=== PATIENT | male | born 1960 | race Caucasian/White ===

== ENCOUNTER 2024-05-01 23:21 | Emergency (ER) | payer MEDICARE, SELFPAY ==
[2024-05-01 23:31] VITALS: BP 136/88
[2024-05-02 01:06] VITALS: BP 151/116
--- NOTE | 2024-05-02 01:22 | ED.GENMED ---
Addendum entered and electronically signed by Abilio Rich PA-C 05/02/24 12:01:
CXR finding by radiology noted moderate tortuosity and possible aneurysmal dilatation of the ascending and descending thoracic aorta. I contacted the patient and spouse via cell phone and left voicemails for both of them to contact the ER to
discuss these results.
Original Note:
History of Present Illness
<ADRIAN Blunt - Last Filed: 05/02/24 04:13>
General
Chief Complaint: Chest Pain
Source: patient
Exam Limitations: none
Time Seen by Provider: 05/02/24 01:03
Nursing documentation reviewed up to this point in time: agreed with
History of Present Illness
History of Present Illness:
Patient w/ PMH of HTN presents to the ED w/ chest pain x 1 day. Pain started last night while sleeping, was awoken by pain. Reports pressure in L upper chest. States he felt fine during the day but pain returned when he laid down tonight. He admits
to intermittent palpitations x 1 day. Reports presyncope since getting to ED. Denies previous episodes of similar symptoms. Hx of LE edema which was dx as arthritis. Notes runny nose x 3 days but believes due to weather. Denies SOB, cough,
congestion, N/V/D/C, and GONZALEZ. Denies family hx of heart disease. Denies any recent new activities/exercises.
Past History
<ADRIAN Blunt - Last Filed: 05/02/24 04:13>
Past History
ED Past Medical History: HTN and Other
ED Past Surgical History: Appendectomy and Cholecystectomy
PSI?: No
Social History
Tobacco: Non-smoker
Alcohol: None
Personal:
Living: with family
Employment: Employed
Family History
Family History: CAD, Cancer and Other; Negative Hypertension
Review of Systems
<ADRIAN Blunt - Last Filed: 05/02/24 04:13>
Review of Systems
Constitutional: Denies fever, fatigue or chills
EENT: Reports runny nose
Respiratory: Denies cough or trouble breathing
Cardiac: Reports chest pain and palpitations; Denies syncope
ABD/GI: Denies abdominal pain, nausea, vomiting, diarrhea or constipated
: Denies dysuria
Musculoskeletal: Denies muscle pain
Phy Exam
<Ekta Gunn [facility] - Last Filed: 05/02/24 04:13>
General Physical Exam
General Presentation: mild distress
General age: appears stated age
General Habitus: normal
General Mental: alert
ENT Exam
ENT Exam: normocephalic
Eye Exam
Eye Exam: PERRL
Cardiovascular Exam
Cardiovascular Exam: regular rate/rhythm and no murmur
Pulmonary Exam
Pulmonary Exam: lungs clear, no respiratory distress, no rales, no crackles, no rhonchi, no wheezing and other (tenderness of L midclavicular 4/5th ICS )
Gastrointestinal Exam
Gastrointestinal Exam: normal bowel sounds, non tender, soft, no organomegaly and non distended
Neurological Exam
Neurological Exam: alert, oriented x3, no motor deficits and speech normal
Musculoskeletal Exam
Musculoskeletal Exam: edema (1+ pitting edema of BL LE)
Scores
<Ekta Gunn [facility] - Last Filed: 05/02/24 04:13>
Heart Score for Chest Pain Patients
Heart Score for Chest Pain Patients: 2
Heart Score Risk: 2.5% MACE over next 6 weeks
<Omayra Saxena DO - Last Filed: 05/02/24 03:25>
Heart Score for Chest Pain Patients
STEMI patient?: No
History: Slightly or Non-Suspicious
ECG: Normal
Age: >45 - <65 years
Risk Factors: 1 or 2 Risk Factors
Troponin: </= Normal Limit
Heart Score for Chest Pain Patients: 2
Heart Score Risk: 2.5% MACE over next 6 weeks
Course
<Ekta Gunn [facility] - Last Filed: 05/02/24 04:13>
Orders/Labs/Results
Orders:
Orders
05/01/24 23:22
Electrocardiogram (*1) Urgent
Reason for Study: Chest Pain
Electrocardiogram (*1) Urgent
Reason for Study: Chest Pain
EKG- Treatment ONCE
Complete Blood Count/With Diff Urgent
Comprehensive Metabolic Panel Urgent
Troponin I Urgent
05/02/24 01:46
CR Chest - 2 Views Urgent
Comment:
Reason For Exam: acute left upper chest pain
Abnormal Lab Results
05/02/24
01:19
RBC 4.14 L 10^6/uL
(4.70-6.10)
Hct 36.7 L %
(39.0-52.0)
MCH 31.6 H pg
(27.0-31.0)
Chloride 110 H mmol/L
(98-107)
BUN 25 H mg/dl
(9-20)
05/02/24 01:19
05/02/24 01:19
Vital Signs
Initial and Last Documented VS:
Initial Vital Signs
Temp Pulse Resp BP Pulse Ox
98.2 F 76 20 136/88 94
05/01/24 23:31 05/01/24 23:31 05/01/24 23:31 05/01/24 23:31 05/01/24 23:31
Last Documented Vital Signs
Temp Pulse Resp BP Pulse Ox
98.2 F 65 16 134/84 91
05/01/24 23:31 05/02/24 03:15 05/02/24 03:15 05/02/24 03:00 05/02/24 03:15
<Omayra Saxena DO - Last Filed: 05/02/24 03:25>
Orders/Labs/Results
Orders:
Orders
05/01/24 23:22
Electrocardiogram (*1) Urgent
Reason for Study: Chest Pain
Electrocardiogram (*1) Urgent
Reason for Study: Chest Pain
EKG- Treatment ONCE
Complete Blood Count/With Diff Urgent
Comprehensive Metabolic Panel Urgent
Troponin I Urgent
05/02/24 01:46
CR Chest - 2 Views Urgent
Comment:
Reason For Exam: acute left upper chest pain
Abnormal Lab Results
05/02/24
01:19
RBC 4.14 L 10^6/uL
(4.70-6.10)
Hct 36.7 L %
(39.0-52.0)
MCH 31.6 H pg
(27.0-31.0)
Chloride 110 H mmol/L
(98-107)
BUN 25 H mg/dl
(9-20)
05/02/24 01:19
05/02/24 01:19
Vital Signs
Initial and Last Documented VS:
Initial Vital Signs
Temp Pulse Resp BP Pulse Ox
98.2 F 76 20 136/88 94
05/01/24 23:31 05/01/24 23:31 05/01/24 23:31 05/01/24 23:31 05/01/24 23:31
Last Documented Vital Signs
Temp Pulse Resp BP Pulse Ox
98.2 F 65 16 134/84 91
05/01/24 23:31 05/02/24 03:15 05/02/24 03:15 05/02/24 03:00 05/02/24 03:15
<ADRIAN Blunt - Last Filed: 05/02/24 04:13>
*Critical Care Note
Total Time (30-74mins, 75-104mins- exclusive of procedures): Not Applicable
<Omayra Saxena DO - Last Filed: 05/02/24 03:25>
*Radiology
Radiology exam reviewed: preliminary read by ED provider (Chest x-ray is unremarkable)
*Pulse Oximetry
Patient hypoxic: no
*EKG
Interpreted by ED Provider?: Yes
Interpretation: normal
Comparison EKG: no comparison EKG present
Rate: normal
Rhythm: sinus
[place]: normal axis
Interval: normal interval
QRS Pattern: normal QRS
Ischemia: no ischemia
*Airframe Technician Interpretation
Rate: normal
Interpretation: normal
Rhythm: sinus
ED Attending Note
<ADRIAN Blunt - Last Filed: 05/02/24 04:13>
-
Portions of this chart may have been created with voice recognition software.� Occasional wrong word or��sound alike� substitutions may have occurred due to the inherent limitations of voice recognition software.
<Omayra Saxena DO - Last Filed: 05/02/24 03:25>
ED Attending Note
Patient seen and examined by attending physician: Yes
I performed the substantive portion of visit, reviewed & personally made and approve the management plan that is documented in note by myself or JANIE.: Yes
ED Attending Note:
This is a 64-year-old gentleman with history of hypertension who presents with left upper chest pain that he initially noted 24 hours ago after lying down to bed. Mild brief chest pain sporadically throughout the day but overall feeling well
throughout the day, exercising without difficulty without chest pain but again tonight after lying down to bed he noted some left upper chest pain that has been persistent described as a pressure, nonradiating. No other accompanying symptoms.
He does exercise on a regular basis and has been attempting to increase his weight lifting this week.
No history of diabetes nor hyperlipidemia nor thromboembolism. No family history of CAD nor ASCVD.
No recent travel. He denies leg pain or swelling.
GENERAL: 64-year-old gentleman appears his stated age, bright and alert, pleasant, appears in no acute distress.
EYE: anicteric
NECK: Supple, nontender, no meningismus, no significant adenopathy.
ENT: oral mucosa is moist. No rhinorrhea.
CARDIAC: Regular rate and rhythm. no murmur. Mild tenderness left upper chest wall. Palpation seems to exactly reproduce patient's pain complaint.
LUNGS: Clear breath sounds bilaterally, no acute respiratory distress, no wheezes/rales/rhonchi
ABDOMEN: Soft, nondistended, without focal tenderness, normoactive BS.
NEUROLOGICAL: Alert and oriented x3, no focal neuro deficits. Gait is powell and steady.
SKIN: Warm and dry, normal color, skin intact. No rash.
MUSCULOSKELETAL: No C/C/E. peripheral pulses are full and equal b/l. No palpable tenderness.
PSYCH: Normal and appropriate interaction.
Concern for ACS, musculoskeletal chest pain, pleurisy, pneumonia. No risk factors no history of thromboembolism, PE, dissection are unlikely.
EKG is unremarkable/within normal limits.
Labs are pending. Will check chest x-ray.
05/02/2024 0317 AM
Labs are unremarkable including negative troponin.
Chest x-ray is unremarkable, clear lung mehta. Normal mediastinum. Normal heart size.
Patient resting comfortably. He does continue with reproducible left upper chest pain that appears musculoskeletal in nature/chest wall strain.
Recommend supportive measures, local heat, ibuprofen versus Tylenol.
Prompt follow-up with PCP.
Return precautions discussed.
Discharge Plan
Departure
Patient Disposition: Home (Routine Discharge)
Date of Disposition: 05/02/24
Time of Disposition: 03:23
Patient with high blood pressure during this ER visit?: No
Condition: Good
Discharge Problem:
Chest wall muscle strain
Instructions: Costochondritis, Chest Pain PCP Follow Up
Prescriptions:
No Action
amlodipine 5 MG tablet
10 mg PO DAILY
lisinopril 10 MG tablet
10 mg PO DAILY
meloxicam 15 mg Tablet
15 mg PO DAILY
gabapentin 300 mg Capsule
300 mg PO TID
Referrals:
Ankit Chan MD [Family Provider] -
Interventions
Interventions:
*Risk Screen - Suicide Last Done: 05/01/24 23:31
*General Assessment Last Done: 05/02/24 01:08
*Neglect/Abuse Screening Last Done: 05/01/24 23:31
ED- Fall Risk Assessment Last Done: 05/02/24 03:28
*ED COVID-19 Vaccine History Last Done: 05/02/24 01:08
*Nursing Disposition Last Done: 05/02/24 03:28
ED- Cardiac Assessment Last Done: 05/02/24 01:17
Discharge Date and Time
Discharge Date/Time: 05/02/24 03:30
Print Language: ESTONIAN
[2024-05-02 01:24] LABS: % Basophils 0.5 % (0-2); % Eosinophils 3.1 % (0-6); % Immature Granulocytes 0.3 % (0-0.5); % Lymphocytes 23.7 % (20.5-51.1); % Monocytes 9.2 % (1.7-9.3); % Neutrophils 63.2 % (42.2-75.2); Absolute Eosinophils 0.2 10^3/uL (0-0.7); Absolute Lymphocytes 1.5 10^3/uL (1.2-3.4); Absolute Monocytes 0.6 10^3/uL (0.1-0.6); Absolute Neutrophils 4.1 10^3/uL (1.4-6.5); Hematocrit 36.7 % (39.0-52.0); Hemoglobin 13.1 g/dL (13.0-18.0); Mean Corp Hgb Conc. 35.7 g/dL (33.0-37.0); Mean Corpuscular Hgb 31.6 pg (27.0-31.0); Mean Corpuscular Volume 88.6 fL (80.0-94.0); Mean Platelet Volume 9.6 fL (7.4-10.4); Nucleated Red Blood Cells % 0 % (-); Platelet Count 248 10^3/uL (130-400); Red Blood Cell Count 4.14 10^6/uL (4.70-6.10); Red Cell Dist. Width 12.7 % (11.5-14.5); White Blood Cell Count 6.5 10^3/uL (4.8-10.8)
[2024-05-02 01:39] VITALS: BP 128/85
[2024-05-02 01:47] LABS: ALT (SGPT) 29 U/L (0-50); AST (SGOT) 31 U/L (17-59); Albumin 4.1 g/dl (3.5-5.0); Alkaline Phosphatase 81 U/L (38-126); Blood Urea Nitrogen 25 mg/dl (9-20); Carbon Dioxide 23 mmol/L (22-30); Chloride 110 mmol/L (98-107); Glucose 94 mg/dl (70-99); Potassium 3.9 mmol/L (3.5-5.1); Sodium 145 mmol/L (135-145); Total Bilirubin 0.9 mg/dl (0.2-1.3); Total Protein 6.6 g/dl (6.3-8.2); eGFR > 60.00
[2024-05-02 01:52] LABS: Troponin I < 0.012 ng/ml
[2024-05-02 02:00] VITALS: BP 121/82
[2024-05-02 02:35] VITALS: BP 134/84
[2024-05-02 03:00] VITALS: BP 134/84
== END 2024-05-02 03:30 | disposition home or self-care (01) ==
LOC: EMR 23:21
PROVIDERS: EMERGENCY PHYSICIAN Emergency Medicine; FAMILY PHYSICIAN Family Medicine
DX: S29.011A Strain of muscle and tendon of front wall of thorax, initial encounter (principal); X58.XXXA Exposure to other specified factors, initial encounter; I10 Essential (primary) hypertension
CPT/HCPCS: 99285; 71046; 80053; 84484; 85025; 93005

== ENCOUNTER 2024-05-02 16:10 | Emergency (ER) | payer MEDICARE, SELFPAY ==
[2024-05-02 16:15] VITALS: BP 145/91
--- NOTE | 2024-05-02 16:43 | ED.GENMED ---
History of Present Illness
General
Chief Complaint: Chest Pain
Source: patient and records
Time Seen by Provider: 05/02/24 16:36
History of Present Illness
History of Present Illness:
64yoM with a history of hypertension, obesity, and arthritis presenting for evaluation of an abnormal CXR. Patient initially started with chest pain 2 nights ago. He woke up from sleep with L sided chest discomfort. The pain seemed to resolve but
then recurred again last night prompting him to come to the ED. The pain was worse with laying flat and better with sitting up. He had a normal EKG and troponin during ED stay and symptoms were thought to be from a chest wall strain. After
discharge, the radiologist interpreted the CXR as 'Moderate tortuosity and possible aneurysmal dilatation of the ascending and descending thoracic aorta.' He was advised to come back to the ED for a CT scan. Patient has no chest pain currently. He
denies any diaphoresis, paresthesias, shortness of breath, nausea, vomiting.
Past History
Past History
ED Past Medical History: HTN and Other
ED Past Surgical History: Appendectomy and Cholecystectomy
PSI?: No
Social History
Tobacco: Non-smoker
Alcohol: None
Personal:
Living: with family
Employment: Employed
Family History
Family History: CAD, Cancer and Other; Negative Hypertension
Phy Exam
General Physical Exam
General Presentation: well appearing and no apparent distress
General age: appears stated age
General Skin: warm and dry
General Habitus: normal
General Mental: alert
ENT Exam
ENT Exam: normocephalic
Cardiovascular Exam
Cardiovascular Exam: regular rate/rhythm, no murmur and normal peripheral pulses (2+ radial and DP pulses bilaterally)
Pulmonary Exam
Pulmonary Exam: lungs clear, no respiratory distress, no crackles and no wheezing
[place] Coma Scale
Eye Opening: Spontaneous
Verbal Response: Oriented
Motor Response: Obeys Commands
GCS Total Score: 15
Skin Exam
Skin Exam: normal color and warm/dry
Psychiatric Exam
Psychiatric Exam: normal mood/affect
Scores
Heart Score for Chest Pain Patients
STEMI patient?: No
History: Slightly or Non-Suspicious
ECG: Normal
Age: >/= 65 years
Risk Factors: 1 or 2 Risk Factors
Troponin: </= Normal Limit
Heart Score for Chest Pain Patients: 3
Heart Score Risk: 2.5% MACE over next 6 weeks
Course
Orders/Labs/Results
Orders:
Orders
05/02/24 16:43
Electrocardiogram (*1) Urgent
Reason for Study: Chest Pain
CT Chest/abd/pelvis Angio W/wo Urgent
Comment:
Reason For Exam: Chest pain, abnormal CXR
EKG- Treatment ONCE
05/02/24 16:51
Basic Metabolic Panel Urgent
Complete Blood Count/With Diff Urgent
Troponin I Urgent
Abnormal Lab Results
05/02/24
16:51
RBC 4.28 L 10^6/uL
(4.70-6.10)
MCH 32.7 H pg
(27.0-31.0)
Absolute Lymphs (auto) 0.9 L 10^3/uL
(1.2-3.4)
Neutrophils % 80.9 H %
(42.2-75.2)
Lymphocytes % 11.8 L %
(20.5-51.1)
Chloride 109 H mmol/L
(98-107)
BUN 22 H mg/dl
(9-20)
Glucose 127 H mg/dl
(70-99)
05/02/24 16:51
05/02/24 16:51
Vital Signs
Initial and Last Documented VS:
Initial Vital Signs
Temp Pulse Resp BP Pulse Ox
98.1 F 83 18 145/91 97
05/02/24 16:15 05/02/24 16:15 05/02/24 16:15 05/02/24 16:15 05/02/24 16:15
Last Documented Vital Signs
Temp Pulse Resp BP Pulse Ox
98.5 F 70 16 134/89 93
05/02/24 17:28 05/02/24 20:00 05/02/24 20:00 05/02/24 20:00 05/02/24 20:00
MDM/Problems Addressed
Differential Diagnosis Includes:
64yoM here with chest pain that started 2 days ago. Worse with laying flat. Seen in ED last night for the same and he was called back for a CT scan after his CXR showed moderate tortuosity of the aorta. Currently asymptomatic. VSS. He is well
appearing in no distress. Exam is reassuring with equal pulses in all extremities. Differential diagnosis includes but is not limited to: chest wall pain, aortic aneurysm, less likely dissection
Initial ED plan: Check cardiac labs, EKG, and CTA dissection study.
*EKG
Interpreted by ED Provider?: Yes
EKG Intrepretation Date: 05/02/24
Heart Rate: 71
Rate: normal
Rhythm: sinus
[place]: normal axis
Interval: normal interval
QRS Pattern: normal QRS
Ischemia: no ischemia
*Critical Care Note
Total Time (30-74mins, 75-104mins- exclusive of procedures): Not Applicable
Update Note
Update Note:
EKG shows NSR without ischemic changes and appears unchanged from yesterday. Troponin WNL. CTA is negative for dissection. Imaging shows mild aneurysmal dilation of the ascending aorta. There is also a 2mm lung nodule seen incidentally. Patient and
daughter informed of results and he was provided with a copy of his CT scan report. He was advised to f/u with his PCP. ED return precautions discussed. He expressed understanding and is agreeable to plan. He was discharged in stable condition.
ED Attending Note
-
Portions of this chart may have been created with voice recognition software.� Occasional wrong word or��sound alike� substitutions may have occurred due to the inherent limitations of voice recognition software.
Discharge Plan
Departure
Patient Disposition: Home (Routine Discharge)
Date of Disposition: 05/02/24
Time of Disposition: 19:46
Patient with high blood pressure during this ER visit?: No
Discharge Problem:
Chest pain, Ascending aorta dilation, Incidental pulmonary nodule
Instructions: Chest Pain PCP Follow Up
Prescriptions:
No Action
amlodipine 5 MG tablet
10 mg PO DAILY
lisinopril 10 MG tablet
10 mg PO DAILY
meloxicam 15 mg Tablet
15 mg PO DAILY
gabapentin 300 mg Capsule
300 mg PO TID
Referrals:
Ankit Chan MD [Family Provider] -
Activity Restrictions/Additional Instructions:
Please call your family doctor tomorrow to schedule a follow-up appointment. Return to the ER immediately with any new or worsening symptoms.
Your CT scan today showed a mild aneurysm of the ascending aorta as well as a small lung nodule. Please discuss this with your primary care provider.
Interventions
Interventions:
*Risk Screen - Suicide Last Done: 05/02/24 17:28
*General Assessment Last Done: 05/02/24 17:28
*Neglect/Abuse Screening Last Done: 05/02/24 17:28
ED- Fall Risk Assessment Last Done: 05/02/24 17:28
*ED COVID-19 Vaccine History Last Done: 05/02/24 17:28
*Nursing Disposition Last Done: 05/02/24 20:00
ED- Cardiac Assessment Last Done: 05/02/24 17:28
Discharge Date and Time
Discharge Date/Time: 05/02/24 20:00
Print Language: NIGERIAN
[2024-05-02 16:59] LABS: % Basophils 0.5 % (0-2); % Eosinophils 0.7 % (0-6); % Immature Granulocytes 0.4 % (0-0.5); % Lymphocytes 11.8 % (20.5-51.1); % Monocytes 5.7 % (1.7-9.3); % Neutrophils 80.9 % (42.2-75.2); Absolute Eosinophils 0.1 10^3/uL (0-0.7); Absolute Lymphocytes 0.9 10^3/uL (1.2-3.4); Absolute Monocytes 0.4 10^3/uL (0.1-0.6); Absolute Neutrophils 6.2 10^3/uL (1.4-6.5); Hematocrit 39.9 % (39.0-52.0); Mean Corp Hgb Conc. 35.1 g/dL (33.0-37.0); Mean Corpuscular Hgb 32.7 pg (27.0-31.0); Mean Corpuscular Volume 93.2 fL (80.0-94.0); Mean Platelet Volume 9.9 fL (7.4-10.4); Nucleated Red Blood Cells % 0 % (-); Platelet Count 263 10^3/uL (130-400); Red Blood Cell Count 4.28 10^6/uL (4.70-6.10); Red Cell Dist. Width 12.8 % (11.5-14.5); White Blood Cell Count 7.6 10^3/uL (4.8-10.8)
[2024-05-02 17:00] VITALS: BP 128/80
[2024-05-02 17:13] LABS: Blood Urea Nitrogen 22 mg/dl (9-20); Calcium 9.1 mg/dl (8.4-10.2); Carbon Dioxide 25 mmol/L (22-30); Chloride 109 mmol/L (98-107); Glucose 127 mg/dl (70-99); Potassium 4.1 mmol/L (3.5-5.1); Sodium 144 mmol/L (135-145); eGFR > 60.00
[2024-05-02 17:25] LABS: Troponin I < 0.012 ng/ml
[2024-05-02 17:28] VITALS: BP 128/80; BMI 32.1
--- NOTE | 2024-05-02 17:32 | EDRN ---
the pt was received from the waiting room, the pt was placed on the monitor, VS WNL however the pts Sp02 was 91%, this RN placed the pt on 3L NC and the provider Latesha DE LUNA was notified, LAC #[id number] PIV was placed and labs were drawn and sent,
no s/s of distress, will continue to monitor the pt closely
[2024-05-02 19:00] VITALS: BP 136/87
[2024-05-02 20:00] VITALS: BP 134/89
== END 2024-05-02 20:00 | disposition home or self-care (01) ==
LOC: EMR 16:10
PROVIDERS: Physician Assistant; EMERGENCY PHYSICIAN Student in an Organized Health Care Education/Training Program; FAMILY PHYSICIAN Family Medicine
DX: R07.89 Other chest pain (principal); I77.810 Thoracic aortic ectasia; R91.1 Solitary pulmonary nodule; I10 Essential (primary) hypertension; Z90.49 Acquired absence of other specified parts of digestive tract
CPT/HCPCS: 99284; 71275; 74174; 80048; 84484; 85025; 93005; Q9967